=== PATIENT | female | born 1985 | race Caucasian/White ===

== ENCOUNTER → 2019-07-05 09:23 | Outpatient (CLI) | payer OTHER, SELFPAY ==
[2019-07-05 13:20] LABS: AST(SGOT) 13 U/L (15-37); Alanine Aminotransfer ALT/SGPT 23 U/L (13-56); Cholesterol 187 mg/dL (200); Glucose 125 mg/dL (74-106); High Density Lipoprotein 39 mg/dL; T4 Free Direct 1.01 ng/dL (0.76-1.46); Triglycerides 175 mg/dL; Very Low Density Lipoprotein 35 mg/dL (5-40)
[2019-07-05 13:34] LABS: Hemoglobin A1c 5.1 % (4.2-6.3)
[2019-07-11 12:39] LABS: Lamotrigine (Lamictal) Level 1.5 ug/mL (2.0-20.0)
== END ==
PROVIDERS: Family Provider Internal Medicine; PCP Internal Medicine
DX: E78.5 Hyperlipidemia, unspecified (principal)
CPT/HCPCS: 36415; 80061; 82542; 82947; 83036; 84439; 84443; 84450; 84460

== ENCOUNTER → 2019-08-02 12:26 | Outpatient (CLI) | payer OTHER, SELFPAY ==
[2019-08-02 14:45] LABS: T4 Free Direct 1.35 ng/dL (0.76-1.46); Thyroid Stim Hormone (TSH) 0.82 uIU/mL (0.358-3.74)
== END ==
PROVIDERS: Family Provider Internal Medicine; PCP Internal Medicine
DX: E89.0 Postprocedural hypothyroidism (principal)
CPT/HCPCS: 36415; 84439; 84443